=== PATIENT | male | born 1945 | race Caucasian/White ===

== ENCOUNTER 2017-03-29 03:02 | Emergency (ER) | payer MEDICARE ==
[2017-03-29 03:49] LABS: #Eosinphils 0.2 thou/uL (0.0-0.7); #Lymphocytes 1.3 thou/uL (1.20-3.40); #Monocytes 0.6 thou/uL (0.11-0.59); #Neutrophils 2.2 thou/uL (1.40-6.50); %Basophils 0.9 % (0.0-1.0); %Eosinophils 4.9 % (0.0-10.0); %Lymphocytes 29.9 % (21.0-51.0); %Monocytes 13.9 % (0.0-10.0); %Neutrophils 50.5 % (42.0-75.0); Mean Corpuscular HGB CONC 34.3 g/dL (32.0-36.0); Mean Corpuscular Hemoglobin 30.9 pg (27.0-31.0); Mean Corpuscular Volume 90.1 fl (80.0-94.0); Platelet Count 183 thou/uL (130-400); RBC Distribution Width 10.7 % (11.5-14.5); White Blood Cell (WBC) Count 4.4 thou/uL (4.8-10.8)
[2017-03-29 03:57] LABS: Bilirubin Negative (Negative); Clarity Clear (Clear); Glucose, Urine (Dipstick) Negative (Negative); Leukocyte Negative (Negative); Nitrite Negative (Negative); Protein, Urine (Dipstick) Negative (Neg-Trace); Urobilinogen 0.2 mg/dL (0.2-1.0)
[2017-03-29 03:58] LABS: Blood, Urine Trace (Negative)
[2017-03-29 04:00] LABS: RBC/HPF 0-3 HPF (0-3)
[2017-03-29 04:01] LABS: Bacteria/HPF None Seen HPF (None Seen); Crystals/HPF None Seen HPF (Negative); Hyaline Casts/LPF NONE SEEN LPF (0-3 Hyaline); Other Casts/LPF None Seen LPF (0-3 Hyaline); Other Microscopic Description N; Oval Fat Bodies/HPF None Seen HPF (None Seen); Renal Epithelial None Seen HPF (0-3); Sperm/HPF None Seen HPF (None Seen); Squamous Epithelial 0-3 HPF (0-3); Transitional Epithelial NONE SEEN HPF (0-3); Trichomonas/HPF None Seen HPF (None Seen); WBC/HPF None Seen HPF (0-3); Yeast-All Forms None Seen HPF (None Seen)
[2017-03-29 04:09] LABS: ALT (SGPT) 24 U/L (8-55); AST (SGOT) 21 U/L (5-34); Albumin 3.8 g/dL (3.4-4.8); Alkaline Phosphatase 77 U/L (40-150); Anion Gap 16 mmol/L (10-20); BUN (Urea Nitrogen) 13 mg/dL (8.4-25.7); Bilirubin, Total 0.5 mg/dL (0.2-1.2); Calc. Creatinine Clearance 0 mL/min (70-130); Calcium 9.1 mg/dL (7.8-10.44); Carbon Dioxide 23 mmol/L (23-31); Chloride 102 mmol/L (98-107); Estimated GFR-MDRD 83; Globulin 3.2 g/dL (2.4-3.5); Glucose 159 mg/dL (83-110); Lipase 32 U/L (8-78); Sodium 137 mmol/L (136-145)
[2017-03-29] MEDS ORDERED: Metoclopramide HCl 10 MG/2 ML VIAL ONE (04:19)
[2017-03-29] MEDS ORDERED: Meclizine HCl 25 MG TAB ONE (04:19)
[2017-03-29] MEDS ORDERED: diphenhydrAMINE HCl 50 MG/ML 1 ML VIAL ONE (04:19)
[2017-03-29] MEDS ORDERED: Morphine Sulfate 2 MG/ML SYRINGE ONE (04:19)
[2017-03-29] MEDS ORDERED: Ondansetron HCl/PF 4 MG/2 ML Vial ONE (04:19)
[2017-03-29] MEDS ORDERED: Ciprofloxacin 500 MG TAB ONE (05:30)
[2017-03-29] MEDS ORDERED: metroNIDAZOLE 250 MG TAB ONE (05:30)
--- NOTE | 2017-03-29 08:11 | CT ---
PRELIMINARY REPORT/[facility]/EMERGENCY AFTER HOURS PROCEDURE: EXAM: CT Head Without Intravenous Contrast CLINICAL HISTORY: 71 years old, male; Signs and symptoms; Dizziness; Patient HX: Er pt having dizziness and pain TECHNIQUE: Axial computed tomography images of the head/brain without intravenous contrast. EXAM DATE/TIME: Exam ordered 03/29/2017 3:42 AM COMPARISON: No relevant prior studies available. FINDINGS: Brain: Volume loss and chronic small vessel ischemic change. No hemorrhage. Ventricles: Unremarkable. No ventriculomegaly. Bones/joints: Unremarkable. No acute fracture. Soft tissues: Unremarkable. Sinuses: Unremarkable as visualized. No acute sinusitis. Mastoid air cells: Unremarkable as visualized. No mastoid effusion. IMPRESSION: No acute brain findings. Thank you for allowing us to participate in the care of your patient. Dictated and Authenticated by: Pedro Umanzor MD 03/29/2017 4:17 AM Central Time ([place] \T\ [place]) FINAL REPORT HEAD CT WITHOUT CONTRAST: Date: 03/29/17 COMPARISON: None. HISTORY: Dizziness. FINDINGS: This report is in agreement with the preliminary report given by Manuel. Imaged paranasal sinuses and mastoid air cells are well aerated. No displaced calvarial fracture, in tracranial hemorrhage, midline shift, or mass effect. Periventricular, deep, and subcortical white m atter hypodensity noted, evidence of small vessel disease. IMPRESSION: No intracranial hemorrhage or displaced calvarial fracture. Small vessel disease. POS: [facility]
--- NOTE | 2017-03-29 08:27 | CT ---
PRELIMINARY REPORT/[facility]/EMERGENCY AFTER HOURS PROCEDURE: EXAM: CT Abdomen and Pelvis Without Intravenous Contrast CLINICAL HISTORY: 71 years old, male; Pain; Abdominal pain; Flank; Left; Patient HX: Pt having lt flank pain TECHNIQUE: Axial computed tomography images of the abdomen and pelvis without intravenous contrast. EXAM DATE/TIME: Exam ordered 03/29/2017 3:48 AM COMPARISON: No relevant prior studies available. FINDINGS: Lower thorax: No acute findings. ABDOMEN: Liver: Hepatic steatosis. Gallbladder and bile ducts: Unremarkable. No calcified stones. No ductal dilation. Pancreas: Unremarkable. No ductal dilation. Spleen: Unremarkable. No splenomegaly. Adrenals: Unremarkable. No mass. Kidneys and ureters: Unremarkable. No obstructing stones. No hydronephrosis. Stomach and bowel: Colonic diverticulosis. No diverticulitis. No obstruction. Appendix: Normal appendix. PELVIS: Bladder: Unremarkable. No stones. Reproductive: Prostatomegaly. ABDOMEN and PELVIS: Intraperitoneal space: Unremarkable. No free air. No significant fluid collection. Bones/joints: No acute fracture. No dislocation. Soft tissues: Unremarkable. Vasculature: Unremarkable. No abdominal aortic aneurysm. Lymph nodes: Unremarkable. No enlarged lymph nodes. IMPRESSION: No acute findings. Thank you for allowing us to participate in the care of your patient. Dictated and Authenticated by: Pedro Umanzor MD 03/29/2017 4:17 AM Central Time ([place] \T\ [place]) FINAL REPORT CT OF ABDOMEN AND PELVIS: DATE: 03/29/17. COMPARISON: 04/30/12. HISTORY: Left-sided flank pain. FINDINGS: I agree with the preliminary [facility] report. The lack of contrast media limits assessment of the visc era, bowel, vascular structures, and for lymphadenopathy. There are granulomatous calcifications in the left lung base. No free intraperitoneal air noted. The liver appears relatively hypodense suggesting a degree of steatosis. Hepatic and splenic granul omata are present. The gallbladder, pancreas, and adrenal glands are unremarkable. There is no [place] dence for nephrolithiasis or obstructive uropathy on either side. There is enlargement of the prostate gland. There is sigmoid diverticulosis without evidence for di verticulitis. No evidence for bowel inflammatory change or obstruction. Appendix is visualized and within normal limits. There is significant lower lumbar spine facet hypertrophic change. No worri some lytic or blastic bone lesion. IMPRESSION: No evidence for nephrolithiasis or obstructive uropathy. POS: [facility]
--- NOTE | 2017-03-29 09:13 | RAD ---
CHEST 1 VIEW: Date: 03/29/17 HISTORY: Chest and abdomen pain. COMPARISON: 11/10/14. FINDINGS: Cardiac silhouette is magnified by projection. Pulmonary vasculature is upper limits of normal. Medi astinum is midline. There is no confluent air space consolidation or evidence of pneumothorax. IMPRESSION: No active cardiopulmonary abnormalities are demonstrated. POS: [facility]
== END 2017-03-29 05:34 | disposition home or self-care (01) ==
LOC: MADERS 03:02
DX: K57.92 Diverticulitis of intestine, part unspecified, without perforation or abscess without bleeding (principal); K21.9 Gastro-esophageal reflux disease without esophagitis; F17.220 Nicotine dependence, chewing tobacco, uncomplicated; Z79.899 Other long term (current) drug therapy
CPT/HCPCS: 70450; 71010; 74176; 80053; 81001; 82150; 83605; 83690; 85025; 87086; 96374; 96375; J1200; J2270; J2405; J2765

== ENCOUNTER 2018-09-05 09:13 | Emergency (ER) | payer MEDICARE ==
[2018-09-05] MEDS ORDERED: Tetracaine 0.5% OPHTH SOLN/PF 4 ML BOT ONE (10:15)
--- NOTE | 2018-09-05 11:37 | CT ---
CT ORBITS WITHOUT CONTRAST: Technique: Multiple contiguous axial images were obtained through the orbits with multiplanar reconst ruction. Indication: Injury to right eye. Punctured right eye with nail. FINDINGS: Mild edema over the right orbit on soft tissue images. The retroorbital structures appear unremarkabl e. The globes are intact and appears unremarkable. The lens appears normally positioned. No evidence of fracture. There is mucosal edema in the periphery of the left maxillary sinus. The visualized frontal, ethmoid, and sphenoid sinuses are clear. No evidence of fracture identified. Extraocular muscles are symmetri c and appear normal. IMPRESSION: 1. Mild subcutaneous edema over the right orbit, possibly involving the lid. 2. The globe and retroorbital structures appear unremarkable. No evidence of fracture. 3. There is mucosal edema involving the left maxillary sinus and diffuse mucosal edema seen involving the visualized left mastoid air cells. Correlate clinically for mastoiditis. POS: [facility]
== END 2018-09-05 11:45 | disposition home or self-care (01) ==
LOC: MADERS 09:13
DX: S01.131A Puncture wound without foreign body of right eyelid and periocular area, initial encounter (principal); K21.9 Gastro-esophageal reflux disease without esophagitis; F17.220 Nicotine dependence, chewing tobacco, uncomplicated; Z79.899 Other long term (current) drug therapy; W26.8XXA Contact with other sharp object(s), not elsewhere classified, initial encounter
CPT/HCPCS: 70480

== ENCOUNTER 2018-10-16 09:44 | Emergency (ER) | payer MEDICARE ==
[2018-10-16] MEDS ORDERED: Dexamethasone 4 MG TAB ONE (10:11)
[2018-10-16] MEDS ORDERED: Clindamycin 150 MG CAP ONE ×2 (10:11)
== END 2018-10-16 10:30 | disposition home or self-care (01) ==
LOC: MADERS 09:44
DX: L73.9 Follicular disorder, unspecified (principal); K21.9 Gastro-esophageal reflux disease without esophagitis; E11.9 Type 2 diabetes mellitus without complications
CPT/HCPCS: 99282; J8540

== ENCOUNTER 2018-10-24 10:37 | Emergency (ER) | payer MEDICARE | END 2018-10-24 11:21 | disposition home or self-care (01) | LOC: MADERS 10:37 | DX: L30.9 Dermatitis, unspecified (principal); K21.9 Gastro-esophageal reflux disease without esophagitis; E11.9 Type 2 diabetes mellitus without complications; Z79.899 Other long term (current) drug therapy | CPT/HCPCS: 99282 ==

== ENCOUNTER 2022-10-28 19:33 | Emergency (ER) | payer OTHER, MEDICARE ==
[2022-10-28] MEDS ORDERED: Lidocaine 1% (PF) 30 ML VIAL ONE (21:39)
[2022-10-28] MEDS ORDERED: Boostrix 0.5 ML (Tdap) VIAL (>/=7 yrs of age) ONE (21:55)
[2022-10-28] MEDS ORDERED: Bacitracin 1 PK ONE (22:38)
== END 2022-10-28 22:42 | disposition home or self-care (01) ==
LOC: MADERS 19:33
DX: S09.90XA Unspecified injury of head, initial encounter (principal); S01.81XA Laceration without foreign body of other part of head, initial encounter; K21.9 Gastro-esophageal reflux disease without esophagitis; E11.9 Type 2 diabetes mellitus without complications; F17.220 Nicotine dependence, chewing tobacco, uncomplicated; W01.198A Fall on same level from slipping, tripping and stumbling with subsequent striking against other object, initial encounter; Y92.009 Unspecified place in unspecified non-institutional (private) residence as the place of occurrence of the external cause; Z23 Encounter for immunization; Z79.899 Other long term (current) drug therapy
CPT/HCPCS: 12013; 70450; 90471; 90715; J2001

== ENCOUNTER 2022-11-27 17:08 | Emergency (ER) | payer MEDICARE | END 2022-11-27 17:46 | disposition home or self-care (01) | LOC: MADERS 17:08 | DX: T22.212A Burn of second degree of left forearm, initial encounter (principal); T22.112A Burn of first degree of left forearm, initial encounter; T31.0 Burns involving less than 10% of body surface; K21.9 Gastro-esophageal reflux disease without esophagitis; E11.9 Type 2 diabetes mellitus without complications; F17.220 Nicotine dependence, chewing tobacco, uncomplicated; X12.XXXA Contact with other hot fluids, initial encounter | CPT/HCPCS: 99283 ==

== ENCOUNTER 2023-04-24 03:31 | Emergency (ER) | payer MEDICARE ==
[2023-04-24 04:40] LABS: Bilirubin Negative (Negative); Blood, Urine Small (Negative); CAUTI Indications for Culture Alt mental st,lethar; Clarity Clear (Clear); Glucose, Urine (Dipstick) >=1000 mg/dL (Negative); Ketone, Urine Negative (Negative); Leukocyte Negative (Negative); Nitrite Negative (Negative); Protein, Urine (Dipstick) Negative (Neg-Trace); Squamous Epithelial 0-3 HPF (0-3); Urine Culture Reflex No No; Urobilinogen 0.2 mg/dL (Less than 2); WBC/HPF None Seen HPF (0-3)
[2023-04-24 04:44] LABS: Amphetamine Not Detected (NotDetected); Barbiturates Screen Not Detected (NotDetected); Benzodiazepine Screen Not Detected (NotDetected); Cocaine Metabolite Screen Not Detected (NotDetected); Methadone Not Detected (NotDetected); Methamphetamine Not Detected (NotDetected); Opiate Screen Not Detected (NotDetected); Oxycodone Screen Not Detected (NotDetected); Phencyclidine (PCP) Not Detected (NotDetected); THC/Cannabinoid Screen Not Detected (NotDetected); Tricyclic Screen Not Detected (NotDetected)
[2023-04-24 05:23] LABS: #Eosinphils 0.1 thou/uL (0.0-0.7); #Lymphocytes 0.7 thou/uL (1.20-3.40); #Monocytes 0.4 thou/uL (0.11-0.59); #Neutrophils 3.5 thou/uL (1.40-6.50); %Basophils 0.7 % (0.0-1.0); %Eosinophils 3.1 % (0.0-10.0); %Lymphocytes 15.3 % (21.0-51.0); %Monocytes 9.1 % (0.0-10.0); %Neutrophils 71.8 % (42.0-75.0); Hematocrit 42.1 % (42.0-52.0); Hemoglobin 14.4 g/dL (14.0-18.0); Mean Corpuscular HGB CONC 34.2 g/dL (32.0-36.0); Mean Corpuscular Hemoglobin 31.2 pg (27.0-31.0); Mean Corpuscular Volume 91.1 fl (78.0-98.0); Mean Platelet Volume 7.5 fL (7.4-10.4); Platelet Count 233 10x3/uL (130-400); RBC Distribution Width 12.5 % (11.5-14.5); Red Blood Cell (RBC) Count 4.62 mill/uL (4.70-6.10); White Blood Cell (WBC) Count 4.8 10x3/uL (4.8-10.8)
[2023-04-24 05:40] LABS: Acetaminophen Less than 10 mcg/mL (10.0-30.0); Alcohol Less than 10.0 mg/dL (Less than 10); Salicylate Less than 8.0 mg/dL (15.0-30.0)
[2023-04-24 05:42] LABS: ALT (SGPT) 15 U/L (8-55); AST (SGOT) 17 U/L (5-34); Albumin 3.8 g/dL (3.4-4.8); Alkaline Phosphatase 34 U/L (40-110); Anion Gap 14 mmol/L (10-20); BUN (Urea Nitrogen) 10 mg/dL (8.4-25.7); Bilirubin, Total 0.3 mg/dL (0.2-1.2); Calc. Creatinine Clearance 0 mL/min (70-130); Carbon Dioxide 22 mmol/L (23-31); Chloride 107 mmol/L (98-107); Estimated GFR 77; Globulin 2.6 g/dL (2.4-3.5); Glucose 245 mg/dL (83-110); Potassium 3.7 mmol/L (3.5-5.1); Protein, Total 6.4 g/dL (5.8-8.1); Sodium 139 mmol/L (136-145); Troponin I Less than 0.010 ng/mL (< 0.028)
[2023-04-24] MEDS ORDERED: Lorazepam 2 MG/ML VIAL ONE (05:47)
[2023-04-24] MEDS ORDERED: Clopidogrel Bisulfate 75 MG TAB ONE (07:55)
[2023-04-24 08:44] LABS: Troponin I Less than 0.010 ng/mL (< 0.028)
[2023-04-24 09:17] LABS: SARS-CoV-2 NAA Rapid Test Not Detected (NotDetected)
== END 2023-04-24 11:40 | disposition short-term general hospital (02) ==
LOC: MADERS 03:31
DX: R26.81 Unsteadiness on feet (principal); I49.3 Ventricular premature depolarization; F17.220 Nicotine dependence, chewing tobacco, uncomplicated; K21.9 Gastro-esophageal reflux disease without esophagitis; E11.9 Type 2 diabetes mellitus without complications; E78.2 Mixed hyperlipidemia; M19.90 Unspecified osteoarthritis, unspecified site; Z20.822 Contact with and (suspected) exposure to COVID-19; Z79.899 Other long term (current) drug therapy; Z79.84 Long term (current) use of oral hypoglycemic drugs
CPT/HCPCS: 36415; 70450; 71045; 80053; 80306; 80307; 81001; 83735; 84443; 84484; 85025; 93005; 96374; J2060; U0002